=== PATIENT | male | born 1965 | race Hispanic/Latino ===

== ENCOUNTER → 2020-05-16 | Outpatient (CLI) | payer MEDICARE ==
[~2020-05-16] MED LIST: AMIT50TA3 PO; ARIP10TA8 PO; CELE200 PO; CETI10TA57 PO; DULO60CA64 PO; GABA600T10 PO; LISI1TAB51 PO; PRAV40TA3 PO; TAMS0.4C32 PO; TRAM50TA4 PO
== END | disposition home or self-care (01) ==
LOC: OIH 14:26
PROVIDERS: ATTEND Internal Medicine
DX: J44.9 Chronic obstructive pulmonary disease, unspecified (principal)
CPT/HCPCS: 71046